=== PATIENT | male | born 1955 | race African-American/Black ===

== ENCOUNTER 2017-07-22 02:00 | Emergency (ER) | payer OTHER ==
[2017-07-22] MEDS ORDERED: Ketorolac Tromethamine 30 MG/ML VIAL ONE (02:33)
[2017-07-22] MEDS ORDERED: Acetaminophen 500 MG TAB ONE (03:18)
== END 2017-07-22 03:33 | disposition home or self-care (01) ==
LOC: ERS 02:00
DX: M25.512 Pain in left shoulder (principal); G89.29 Other chronic pain; I10 Essential (primary) hypertension; M19.90 Unspecified osteoarthritis, unspecified site; F17.210 Nicotine dependence, cigarettes, uncomplicated; Z79.899 Other long term (current) drug therapy
CPT/HCPCS: 96372; J1885

== ENCOUNTER 2017-07-24 03:08 | Emergency (ER) | payer OTHER ==
--- NOTE | 2017-07-24 15:27 | EKG ---
Test Reason : Blood Pressure : / mmHG Vent. Rate : 067 BPM Atrial Rate : 067 BPM P-R Int : 110 ms QRS Dur : 092 ms QT Int : 386 ms P-R-T Axes : 073 064 069 degrees QTc Int : 407 ms Sinus rhythm with short MA Nonspecific T wave abnormality Abnormal ECG Confirmed by MICHAEL MCCAULEY M.D. ([id number]), business editor IRENE BAÑUELOS ([id number]) on 07/24/2017 3:26:36 PM Referred By: Confirmed By:MICHAEL MCCAULEY M.D.
== END 2017-07-24 07:00 | disposition home or self-care (01) ==
LOC: ERS 03:08
DX: G89.29 Other chronic pain (principal); M25.512 Pain in left shoulder; I10 Essential (primary) hypertension; F17.210 Nicotine dependence, cigarettes, uncomplicated
CPT/HCPCS: 93005

== ENCOUNTER 2017-07-29 07:58 | Emergency (ER) | payer OTHER, SELFPAY ==
[2017-07-29] MEDS ORDERED: Ketorolac Tromethamine 60 MG/2 ML VIAL ONE (10:47)
== END 2017-07-29 10:50 | disposition home or self-care (01) ==
LOC: ERS 07:58
DX: M19.022 Primary osteoarthritis, left elbow (principal); M19.042 Primary osteoarthritis, left hand; M17.12 Unilateral primary osteoarthritis, left knee; M19.012 Primary osteoarthritis, left shoulder; I10 Essential (primary) hypertension; H54.7 Unspecified visual loss; F17.210 Nicotine dependence, cigarettes, uncomplicated; Z79.899 Other long term (current) drug therapy
CPT/HCPCS: 96372; 99406; J1885